=== PATIENT | male | born 1940 | race Caucasian/White ===

== ENCOUNTER 2020-01-03 08:52 | Day surgery (SDC) | payer MEDICARE, BC ==
[2019-12-31 16:15] VITALS: BMI 31.4
[2020-01-03 09:46] LABS: #Eosinphils 0.1 thou/uL (0.0-0.7); #Lymphocytes 1.5 thou/uL (1.20-3.40); #Monocytes 0.7 thou/uL (0.11-0.59); %Eosinophils 1.7 % (0.0-10.0); %Lymphocytes 28.1 % (21.0-51.0); %Monocytes 13.9 % (0.0-10.0); %Neutrophils 56.3 % (42.0-75.0); Hemoglobin 13.3 g/dL (14.0-18.0); Mean Corpuscular HGB CONC 33.2 g/dL (32.0-36.0); Mean Corpuscular Hemoglobin 32.9 pg (27.0-31.0); Mean Corpuscular Volume 99.2 fL (78.0-98.0); Mean Platelet Volume 7.7 fL (7.4-10.4); Platelet Count 238 thou/uL (130-400); RBC Distribution Width 11.8 % (11.5-14.5); Red Blood Cell (RBC) Count 4.03 mill/uL (4.70-6.10); White Blood Cell (WBC) Count 5.3 thou/uL (4.8-10.8)
[2020-01-03 10:09] LABS: INR-International Normal Ratio 0.9; Prothrombin Time 12.5 SEC (12.0-14.7)
[2020-01-03 10:10] LABS: PTT 27.3 SEC (22.9-36.1)
[2020-01-03 11:02] VITALS: BP 99/59; TEMP 97.7
--- NOTE | 2020-01-03 12:02 | CT ---
CT-GUIDED LIVER MASS BIOPSY: Conscious sedation: At least 25 minutes spent with the patient for conscious sedation. FINDINGS: After explaining the procedure and answering all questions, the hypodense mass within the anterior se gment right liver lobe was visualized. Sterile technique, buffered local anesthesia, conscious sedation, CT guidance, and a right lateral approach were used to carefully advance a 19-gauge trocar needle to the hypodense mass. Position was confirmed with CT imaging. A total of three 20-gauge core biopsy specimens were obtained and submitted to Dr. King from [facility], who confirmed specimen adequacy. Needle was removed. No evidence of complication. Patient tolerated the procedure well and was returne d to the holding area in good condition for further monitoring. IMPRESSION : Technically successful CT-guided biopsy of liver mass. Pathology is pending. Transcribed Date/Time: 01/03/2020 12:33 PM
--- NOTE | 2020-01-05 13:00 | CT ---
CT-GUIDED LIVER MASS BIOPSY: Conscious sedation: At least 25 minutes spent with the patient for conscious sedation. FINDINGS: After explaining the procedure and answering all questions, the hypodense mass within the anterior se gment right liver lobe was visualized. Sterile technique, buffered local anesthesia, conscious sedation, CT guidance, and a right lateral approach were used to carefully advance a 19-gauge trocar needle to the hypodense mass. Position was confirmed with CT imaging. A total of three 20-gauge core biopsy specimens were obtained and submitted to Dr. King from [facility], who confirmed specimen adequacy. Needle was removed. No evidence of complication. Patient tolerated the procedure well and was returne d to the holding area in good condition for further monitoring. IMPRESSION : Technically successful CT-guided biopsy of liver mass. Pathology is pending. Transcribed Date/Time: 01/05/2020 1:00 PM
== END 2020-01-03 12:15 | disposition home or self-care (01) ==
LOC: CT 08:52
PROVIDERS: ATTEND Internal Medicine Hematology & Oncology
PROC: 0FB13ZX Excision of Right Lobe Liver, Percutaneous Approach, Diagnostic (ICD-10-PCS; principal; 2020-01-03)
DX: C78.7 Secondary malignant neoplasm of liver and intrahepatic bile duct (principal); C18.7 Malignant neoplasm of sigmoid colon; I10 Essential (primary) hypertension; E11.9 Type 2 diabetes mellitus without complications; K21.9 Gastro-esophageal reflux disease without esophagitis; D51.9 Vitamin B12 deficiency anemia, unspecified; D70.9 Neutropenia, unspecified; Z79.82 Long term (current) use of aspirin; Z79.84 Long term (current) use of oral hypoglycemic drugs; Z79.899 Other long term (current) drug therapy; Z88.5 Allergy status to narcotic agent; Z90.49 Acquired absence of other specified parts of digestive tract
CPT/HCPCS: 36415; 47000; 77002; 85025; 85610; 85730; 88307; 88333; 88334; 88341; 88342